=== PATIENT | female | born 1965 | race Caucasian/White ===

== ENCOUNTER 2020-06-18 14:18 | Emergency (ER) | payer OTHER, SELFPAY ==
[2020-06-18 14:24] VITALS: BP 141/79; PULSE 74; RESP 18; TEMP 36.7; O2SAT 100
[2020-06-18] MEDS: KETOROLAC (*BKC) 60 MG/2 ML VIAL 30 MG IM (15:18)
--- NOTE | 2020-06-18 15:29 | ED.GENADULT ---
HPI - General Adult General Chief complaint: Extremity Injury, Upper Stated complaint: pinched nerve in neck Time Seen by Provider: 06/18/20 14:46 Source: patient Mode of arrival: ambulatory Limitations: no limitations History of Present Illness HPI narrative: Patient is a 54-year-old female who presents to emergency department for evaluation of left-sided neck and back pain that she woke with this morning had felt fine yesterday pain radiates down the arm patient on arrival to emergency department. Has not taken anything for her symptoms symptoms are worse with activity and movement denies injury or trauma or URI symptoms. Related Data Allergies Allergy/AdvReac Type Severity Reaction Status Date / Time acetaminophen Allergy Hives Verified 06/18/20 14:29 Penicillins Allergy Hives Verified 06/18/20 14:29 TERAMYCIN Allergy Mild Hives Uncoded 06/18/20 14:29 PROPOXYPHENE NAPSYLATE Allergy Hives Uncoded 06/18/20 14:29 Review of Systems Review of Systems: All systems reviewed & are unremarkable except as noted in HPI and below PMFSH Family History Family History (Updated 03/07/16 @ 23:19 by DOCTOR UNKNOWN) Mother Hypertension Family history of elevated blood lipids Family history of diabetes mellitus in first degree relative Grandparent Hypertension Family history of elevated blood lipids Family history of coronary artery disease Social History Social History Second hand tobacco smoke exposure: No Smoking end date: 08/10/10 Alcohol intake: current Exam Narrative: Exam Narrative: GENERAL: Well-appearing, well-nourished, and in no acute distress. HEAD: Normocephalic, atraumatic. EYES: PERRLA and EOMI. ENT: Nares clear, no rhinorrhea or epistaxis. Mucous membranes moist. NECK: Supple. No adenopathy or masses. CHEST: Clear to auscultation. No respiratory distress. No wheezes rales or rhonchi HEART: Regular rate and rhythm. No murmur heard. EXTREMITIES: Normal range of motion. No edema. Tenderness of the left trapezius and paraspinal thoracic musculature that is reproducible no rash or deformities noted SKIN: Warm, dry, no rash. NEURO: No focal deficits. Alert and oriented x3. Cranial nerves II through XII grossly intact. Normal speech and gait. Neurovascularly intact PSYCH: Normal mood and affect. Course Course Emergency Course: Patient in the room in no distress aware of case findings treatment plan and diagnosis agreeing to follow-up as directed or to return if symptoms worsen or concerns Vital Signs Vital signs: Vital Signs Temperature 98.0 F 06/18/20 14:24 Pulse Rate 74 06/18/20 14:24 Respiratory Rate 18 06/18/20 14:24 Blood Pressure 141/79 H 06/18/20 14:24 Pulse Oximetry 100 06/18/20 14:24 Temperature 98.0 F 06/18/20 14:24 Pulse Rate 74 06/18/20 14:24 Respiratory Rate 18 06/18/20 14:24 Blood Pressure 141/79 H 06/18/20 14:24 Pulse Oximetry 100 06/18/20 14:24 Medical Decision Making MDM Narrative Medical decision making narrative: Patients injury or pain is consistent with musculoskeletal etiology. No signs of neurological or vascular compromise on exam. Compartments and tisues are soft without signs of compartment syndrome. Pain is felt appropriate for further evaluation on an outpatient basis. Vital Signs Vital Signs: Vital Signs Temperature 98.0 F 06/18/20 14:24 Pulse Rate 74 06/18/20 14:24 Respiratory Rate 18 06/18/20 14:24 Blood Pressure 141/79 H 06/18/20 14:24 Pulse Oximetry 100 06/18/20 14:24 Temperature 98.0 F 06/18/20 14:24 Pulse Rate 74 06/18/20 14:24 Respiratory Rate 18 06/18/20 14:24 Blood Pressure 141/79 H 06/18/20 14:24 Pulse Oximetry 100 06/18/20 14:24 Discharge Plan Discharge Clinical Impression: Back pain, thoracic Patient Disposition: Home, Self-Care Condition: Stable Instructions: Antibiotic Form, Thoracic Back
== END 2020-06-18 15:44 | disposition home or self-care (01) ==
PROVIDERS: Emergency Provider Emergency Medicine; PCP Family Medicine
DX: M54.6 Pain in thoracic spine (principal)
CPT/HCPCS: 96372; 99283; J1885